=== PATIENT | female | born 1990 | race American Indian/Alaskan Native ===

== ENCOUNTER 2018-09-24 20:18 | Emergency (ER) | payer OTHER ==
--- NOTE | 2018-09-24 21:10 | Emergency Department Report ---
Blank Doc - Documentation Documentation: pt presents with left sided CP under the left breast that began a week and a h dina ago describes it as pressure +nausea no vomiting +SOB no LE edema no recent long car or plane ride no recent surgery no OCPs LNMP early May mother with cardiomyopathy no hx of DVT/PE PMHx none +smoker rare ETOH no drug use
[2018-09-24 21:45] LABS: Basophils # (Auto) 0.1 K/mm3 (0.0-0.1); Basophils % (Auto) 1.1 % (0.0-1.8); Eosinophils # (Auto) 0.3 K/mm3 (0.0-0.4); Eosinophils % (Auto) 2.9 % (0.0-4.3); Hematocrit 40.3 % (30.3-42.9); Hemoglobin 13.8 gm/dl (10.1-14.3); Lymphocytes # (Auto) 2.6 K/mm3 (1.2-5.4); Lymphocytes % (Auto) 29.4 % (13.4-35.0); Mean Corpuscular HGB Conc 34 % (30-34); Mean Corpuscular Volume 89 fl (79-97); Monocytes # (Auto) 0.7 K/mm3 (0.0-0.8); Monocytes % (Auto) 8.1 % (0.0-7.3); Platelet Count 400 K/mm3 (140-440); Red Blood Count 4.53 M/mm3 (3.65-5.03); Red Cell Distribution Width 14.3 % (13.2-15.2)
[2018-09-24 22:00] LABS: INR 0.87 (0.87-1.13)
[2018-09-24 22:01] LABS: Partial Thromboplastin Time 27.9 Sec. (24.2-36.6)
[2018-09-24 22:08] LABS: BUN/Creatinine Ratio 15; Blood Urea Nitrogen 12 mg/dL (7-17); Calcium 9.7 mg/dL (8.4-10.2); Hemolysis Index 15
--- NOTE | 2018-09-24 22:47 | XRay Report ---
PROCEDURE: XR CHEST ROUTINE 2V TECHNIQUE: PA and lateral chest radiographs were obtained. HISTORY: Chest Pain COMPARISONS: None. FINDINGS: Heart: Normal. Mediastinum/Vessels: Normal. Lungs/Pleural space: Normal. Bony thorax: No acute osseous abnormality. IMPRESSION: Normal examination. This document is electronically signed by Dilshad Boswell MD., Sep 24 2018 10:45:18 PM ET
--- NOTE | 2018-09-25 00:35 | Emergency Department Report ---
ED Chest Pain HPI - General Chief Complaint: Chest Pain Stated Complaint: DIZZY/SOB/CHEST PAIN/NUMBNESS DOWN LEFT ARM Time Seen by Provider: 09/24/18 21:07 Source: patient Mode of arrival: Ambulatory Limitations: No Limitations - History of Present Illness Initial Comments: Morbidly obese -[place] female with no reported past medical history pre sents emergency department complaining of feeling episodes of chest pain that began substernal and radiates to the arm and hand and a sharp to dull fashion, lasting for several minutes with spontaneous occurrences. Occasionally headaches are associated as well as palpitations. Loss of vision. No numbness or tingling to the face. No cough, shortness of breath. No lotion and swelling. She reports no previous history of any coronary syndrome or any blood clots MD Complaint: chest pain Onset: during rest Pain Location: left chest Severity: mild Consistency: intermittent Worsens With: nothing re: denies: vomting, diaphoresis, dyspnea, sense of impending doom Other Symptoms: palpitations. denies: fever, syncope, acid taste in mouth, leg swelling, burping Treatments Prior to Arrival: none - Related Data Allergies Allergy/AdvReac Type Severity Reaction Status Date / Time No Known Allergies Allergy Unverified 09/24/18 20:35 Heart Score - HEART Score History: Slightly suspicious EKG: Normal Age: < 45 Risk factors: 1-2 risk factors Troponin: < normal limit HEART Score: 1 ED Review of Systems ROS: Stated complaint: DIZZY/SOB/CHEST PAIN/NUMBNESS DOWN LEFT ARM Other details as noted in HPI Constitutional: denies: chills, fever Eyes: denies: eye pain, eye discharge, vision change ENT: denies: ear pain, throat pain Respiratory: denies: cough, shortness of breath, wheezing Cardiovascular: chest pain. denies: palpitations Endocrine: no symptoms reported Gastrointestinal: denies: abdominal pain, nausea, diarrhea Genitourinary: denies: urgency, dysuria, discharge Musculoskeletal: denies: back pain, joint swelling, arthralgia Skin: denies: rash, lesions Neurological: denies: headache, weakness, paresthesias Psychiatric: denies: anxiety, depression Hematological/Lymphatic: denies: easy bleeding, easy bruising ED Past Medical Hx - Past Medical History Previous Medical History?: Yes Hx Asthma: Yes - Surgical History Past Surgical History?: No - Social History Smoking Status: Current Every Day Smoker Substance Use Type: None ED Physical Exam - General Limitations: No Limitations General appearance: alert, in no apparent distress - Head Head exam: Present: atraumatic, normocephalic - Eye Eye exam: Present: normal appearance, PERRL, EOMI Pupils: Present: normal accommodation - ENT ENT exam: Present: normal exam, normal orophraynx, mucous membranes moist, TM's normal bilaterally - Neck Neck exam: Present: normal inspection, full ROM - Respiratory Respiratory exam: Present: normal lung sounds bilaterally. Absent: respiratory distress, wheezes, rhonchi - Cardiovascular Cardiovascular Exam: Present: regular rate, normal rhythm. Absent: systolic murmur, diastolic murmur, rubs, gallop - GI/Abdominal GI/Abdominal exam: Present: soft, normal bowel sounds. Absent: distended, tenderness - Extremities Exam Extremities exam: Present: normal inspection - Back Exam Back exam: Present: normal inspection - Neurological Exam Neurological exam: Present: alert, oriented X3 - Psychiatric Psychiatric exam: Present: normal affect, normal mood - Skin Skin exam: Present: warm, dry, intact, normal color. Absent: rash ED Course Vital Signs 09/24/18 09/24/18 20:34 21:07 Temperature 98.8 F 98.8 F Pulse Rate 103 H 103 H Respiratory 16 16 Rate Blood Pressure 151/80 151/80 O2 Sat by Pulse 100 100 Oximetry NATALIA score - Natalia Score Age > 65: (0) No Aspirin use within the Past 7 Days: (0) No 3 or more CAD Risk Factors: (0) No 2 or more Angina events in past 24 hrs: (0) No Known CAD with more than 50% Stenosis: (0) No Elevated Cardiac Markers: (0) No ST Deviation Greater than 0.5mm: (0) No NATALIA Score: 0 ED Medical Decision Making - Lab Data Result diagrams: 09/24/18 21:27 09/24/18 21:27 Critical care attestation.: If time is entered above; I have spent that time in minutes in the direct care of this critically ill patient, excluding procedure time. ED Disposition Clinical Impression: Chest pain Disposition: DC-01 TO HOME OR SELFCARE Is pt being admited?: No Does the pt Need Aspirin: No Condition: Stable Instructions: Chest Pain (ED), Angina (ED), Exercise Stress Echocardiography (ED), Pharmacologic Stress Testing (ED), Pharmacologic Stress Echocardiography (ED) Referrals: KATHLEEN MCKAY MD [Primary Care Provider] - 3-5 Days [facility] [Provider Group] - 3-5 Days MICAH DOMINGUEZ MD [Staff Physician] - 3-5 Days
[2018-09-25 01:01] VITALS: BP 145/79
== END 2018-09-25 01:01 | disposition home or self-care (01) ==
LOC: ED 20:18
DX: R07.89 Other chest pain (principal); R51 Headache; R00.2 Palpitations; J45.909 Unspecified asthma, uncomplicated; F17.200 Nicotine dependence, unspecified, uncomplicated
CPT/HCPCS: 36415; 71046; 80048; 83880; 84484; 84703; 85025; 85379; 85610; 85730; 93005; 93010